=== PATIENT | male | born 1930 | race Hispanic/Latino ===

== ENCOUNTER 2018-11-20 13:02 | Inpatient (IN) | payer MEDICARE ==
[~2018-11-20] VITALS: Ht 180.3 cm; Wt 100.0 kg
[2018-11-20] MEDS ORDERED: SODIUM CHLORIDE 0.9% 1000ML 1,000 ML IV STA ×2 (13:11→13:31)
--- NOTE | 2018-11-20 13:16 | NUR ---
AT BEDSIDE FOR KRISHNAMURTHY PLACEMENT, NOTED TO HAVE EXCESSIVE BARRIER OINTMENT CREAM TO PERINEUM, JANAY CARE PROVIDED, AREA VERY RED.
[2018-11-20] MEDS ORDERED: CEFTRIAXONE SOD 1 GM/NS 50 ML 50 ML IV STA (13:31)
[2018-11-20] MEDS ORDERED: FAMOTIDINE 20 MG/2 ML VIAL IV STA (13:31)
[2018-11-20 13:42] LABS: BASOPHILS % 0.3 % (0.0-1.0); EOSINOPHILS # (AUTO) 0.1 (0.0-0.4); EOSINOPHILS % 0.8 % (0.0-6.0); HEMATOCRIT 37.3 % (38.2-49.6); HEMOGLOBIN 12.3 g/dL (14.0-18.0); LYMPHOCYTES # (AUTO) 0.7 (1.0-3.2); LYMPHOCYTES % 8.7 % (18.0-39.1); MEAN CORPUSCULAR HEMOGLOBIN 30.4 pg (28-32); MEAN CORPUSCULAR VOLUME 92.1 fL (81-99); MONOCYTES # (AUTO) 0.6 (0.2-0.8); MONOCYTES % 7.1 % (4.4-11.3); NEUTROPHILS # (AUTO) 6.3 (2.1-6.9); NEUTROPHILS % 82.3 % (38.7-80.0); PLATELET COUNT 162 x10e3/uL (140-360); RED BLOOD COUNT 4.05 x10e6/uL (4.3-5.7); RED CELL DISTRIBUTION WIDTH 11.8 % (11.7-14.4)
[2018-11-20 13:47] LABS: INR 1.2; PARTIAL THROMBOPLASTIN TIME 32.6 seconds (23.8-35.5); PROTHROMBIN TIME 15.8 seconds (11.9-14.5)
[2018-11-20] MEDS ORDERED: ONDANSETRON HCL INJ 2MG/ML 2ML 2 MG/ML VIAL IV ONE (13:51)
[2018-11-20 13:54] LABS: BILIRUBIN,URINE NEGATIVE (NEGATIVE); CLARITY,URINE SL CLOUDY (CLEAR); COLOR,URINE YELLOW (YELLOW); KETONES,URINE NEGATIVE (NEGATIVE); LEUKOCYTE ESTERASE ,URINE NEGATIVE (NEGATIVE); NITRITE,URINE NEGATIVE (NEGATIVE); PROTEIN,URINE DIPSTICK NEGATIVE (NEGATIVE); URINE UROBILINOGEN 0.2 mg/dL (0.2 - 1)
[2018-11-20 13:56] LABS: ALBUMIN 3.4 g/dL (3.5-5.0); ALBUMIN/GLOBULIN RATIO 0.9 (0.8-2.0); ANION GAP 18.2 mmol/L (8-16); CALCIUM 9.5 mg/dL (8.4-10.2); CREATININE, SERUM 4.73 mg/dL (0.72-1.25)
[2018-11-20 13:59] LABS: MAGNESIUM 2.8 MG/DL (1.3-2.1)
[2018-11-20 14:00] LABS: POTASSIUM 6.2 mmol/L (3.5-5.1)
[2018-11-20] MEDS ORDERED: MORPHINE SULFATE 2 MG/ML SYR 1ML IV ONE (14:00)
[2018-11-20] MEDS ORDERED: SODIUM BICARBONATE 8.4% INJ 50 ML SYR IV ONE (14:02)
[2018-11-20] MEDS ORDERED: ALBUTEROL SULF 0.083% NEB SOLN 3 ML NEB NEB ONE (14:02)
[2018-11-20] MEDS ORDERED: CALCIUM GLUCONATE 10% INJ 0.465 MEQ/ML VIAL IV ONE (14:02)
[2018-11-20] MEDS ORDERED: IPRATROPIUM BROMIDE 0.02% 2.5 ML NEB NEB ONE (14:02)
[2018-11-20] MEDS ORDERED: SOD POLYSTYRENE SULFONATE SUSP 15 GM/60 ML BTL PO ONE (14:02)
[2018-11-20] MEDS ORDERED: INSULIN REGULAR, HUMAN 100 UNIT/1 ML 3ML VIAL IV ONE (14:02)
[2018-11-20] MEDS ORDERED: DEXTROSE 50% SYRINGE 50 ML IV ONE (14:02)
[2018-11-20 14:06] LABS: CREATINE KINASE MB 2.7 ng/mL (0-5.0)
[2018-11-20 14:11] LABS: B-TYPE NATRIURETIC PEPTIDE2 11.5 pg/mL (0-100)
[2018-11-20 14:13] LABS: BACTERIA,URINE MODERATE /HPF; EPITHELIAL CELLS,URINE MODERATE /LPF
[2018-11-20] MEDS ORDERED: ALBUTEROL SULF 0.083% NEB SOLN 3 ML NEB NEB PRN (14:15)
[2018-11-20] MEDS ORDERED: CEFTRIAXONE SOD 1 GM/NS 50 ML 50 ML IV ONE (14:15)
[2018-11-20] MEDS ORDERED: SODIUM CHLORIDE 0.9% IV ONE (14:30)
[2018-11-20] MEDS ORDERED: CALCIUM GLUCONATE IV ONE (14:30)
--- OUTSIDE RECORDS SUMMARY | 2018-11-20 14:38 | XMS REPORT | Encounter Summary ---
Author Organization Unknown Address [address] [place] [address] Phone [phone] Care Team Providers Care Assistant Signal Maintainer Name Role Phone Dr. Viri Machuca 3 [phone] Ada Becerra 3 [phone] To Herring MD 124 [phone] Reason for Visit lab only visit Instructions 1. Long-term current use of anticoagulant 2. 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 Patient educational handouts: No information available. Plan of Care Reminders Provider Appointments None recorded. Lab INR, Plasma 08/09/2018 [facility] Laboratory Referral None recorded. Procedures None recorded. Surgeries None recorded. Imaging None recorded. Medications Name Start Date clotrimazole-betamethasone 1 %-0.05 % topical cream APPLY TO THE AFFECTED AND SURROUNDING AREAS OF SKIN BY TOPICAL ROUTE 2 TIMES PER DAY IN THE MORNING AND EVENING FOR 2 WEEKS clotrimazole/betamethasone dipropionate 1-0.05 % crea hydrocodone 10 mg-acetaminophen 325 mg tablet Take 1 tablet every 6 hours by oral route. metoprolol succinate ER 25 mg tablet,extended release 24 hr Take 1 tablet every day by oral route. sertraline 50 mg tablet TAKE 1 TABLET BY MOUTH EVERY DAY sertraline hcl 50 mg tabs simvastatin 40 mg tablet Take 1 tablet every day by oral route at bedtime. warfarin 3 mg tablet TAKE 1 TABLET BY MOUTH EVERY DAY Medications Administered None recorded. Vitals None recorded. Lab Results Date Name Specimen Result Interpretation Description Value Range Status Address PT/INR Prothrombin 56.6 [facility] ([facility]) [place]: [address] [facility] Inr 4.7 [facility] ([facility]) [place]: [address] [facility] Allergies Code Code System Name Reaction Severity Status Onset NKDA Problems Name Status Onset Date Source Pain in Lower Limb Active 01/17/2018 Mixed Anxiety and Depressive Disorder Active 04/14/2018 Long-term Current Use of Anticoagulant Active 04/14/2018 Chronic Deep Venous Thrombosis of Right Lower Extremity Active 04/14/2018 Dementia Active 08/02/2018 Diabetes Mellitus Active Hyperlipidemia Active Procedures Date Name Performed by Hemorrhoidectomy Information not available Vaccine List Vaccine Type influenza, high dose seasonal 01/17/20180.5 mL pneumococcal conjugate PCV 13 01/17/20180.5 mL Social History Smoking Status Never Smoker Past Encounters 08/09/2018 Long-term Current Use of Anticoagulant; Chronic Deep Venous Thrombosis of Right Lower Extremity Pino Kennedy MD: [address] [place] [address], Ph. 08/02/2018 Dementia; Long-term Current Use of Anticoagulant; Body Mass Index 30+ - Obesity; Pruritic Rash; Elevated Blood-pressure Reading without Diagnosis of Hypertension; Hyperlipidemia; Mixed Anxiety and Depressive Disorder; Chronic Deep Venous Thrombosis of Right Lower Extremity Viri Machuca MD: [address] [place] [address], Ph. History of Present Illness None recorded. Review of Systems None recorded. Physical Exam None recorded.
--- OUTSIDE RECORDS SUMMARY | 2018-11-20 14:38 | XMS REPORT ---
Author Author [facility] Address Unknown Phone Unavailable Care Team Providers Care Senior Branch Manager Name Role Phone Unavailable Unavailable Problems This patient has no known problems. Allergies, Adverse Reactions, Alerts This patient has no known allergies or adverse reactions. Medications This patient has no known medications. Encounters Start Date/Time End Date/Time Encounter Type Admission Type Attending [facility] Facility Care Department Encounter ID 2018-11-05 15:57:00 2018-11-03 14:43:00 Inpatient E [facility] [id number] 2018-09-25 13:51:00 2018-09-25 13:51:00 Emergency [id number]
--- OUTSIDE RECORDS SUMMARY | 2018-11-20 14:38 | XMS REPORT | Encounter Summary ---
Author Organization Unknown Address [address] [place] [address] Phone [phone] Care Team Providers Care Salad Chef Name Role Phone Dr. Viri Machuca 3 [phone] Ada Becerra 3 [phone] To Herring MD 124 [phone] Reason for Visit PT/INR Instructions 1. Long-term current use of anticoagulant PT/INR 2. Mixed anxiety and depressive disorder sertraline 50 mg tablet 3. At risk for falls social media marketing specialist referral 4. Memory impairment neurology referral - Please schedule &contact our patient. thank you. 5. Elevated blood-pressure reading without diagnosis of hypertension metoprolol succinate ER 25 mg tablet,extended release 24 hr 6. Hyperlipidemia high cholesterol: care instructions simvastatin 40 mg tablet 7. 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 Senile purpura 9. Diabetes mellitus Discussion Note: None recorded. Plan of Care Reminders Provider Appointments None recorded. Lab PT/INR 04/01/2018 [facility] ([facility]) [place] Referral Big Data Lead Referral 04/01/2018 Neurology Referral 04/01/2018 Kell Grimm MD Procedures None recorded. Surgeries None recorded. Imaging None recorded. Medications Name Start Date clotrimazole 1 %-betamethasone 0.05 % cream-zinc ox 20 % paste topical Apply twice a day by topical route. clotrimazole-betamethasone 1 %-0.05 % topical cream APPLY TO THE AFFECTED AND SURROUNDING AREAS OF SKIN BY TOPICAL ROUTE 2 TIMES PER DAY IN THE MORNING AND EVENING FOR 2 WEEKS clotrimazole/betamethasone dipropionate 1-0.05 % crea hydrocodone 10 mg-acetaminophen 325 mg tablet Take 1 tablet every 6 hours by oral route. hydrocodone/acetaminophen 10-325 mg tabs metoprolol succinate ER 25 mg tablet,extended release 24 hr Take 1 tablet every day by oral route. metoprolol succinate er 25 mg tb24 mupirocin 2 % oint mupirocin 2 % topical ointment APPLY A SMALL AMOUNT TO THE AFFECTED AREA BY TOPICAL ROUTE 3 TIMES PER DAY sertraline 50 mg tablet Take 1 tablet every day by oral route. Half a tablet per day for first two weeks, then one tablet per day. simvastatin 40 mg tablet Take 1 tablet every day by oral route at bedtime. simvastatin 40 mg tabs sulfamethoxazole 800 mg-trimethoprim 160 mg tablet Take 1 tablet every 12 hours by oral route for 10 days. warfarin 3 mg tablet Take 1 tablet every day by oral route. warfarin sodium 3 mg tabs Medications Administered None recorded. Vitals Height Weight BMI Blood Pressure 5 ft 7 in 201 lbs 31.5 kg/m2 160/60 mm[Hg] Lab Results Date Name Specimen Result Interpretation Description Value Range Status Address 04/01/2018 PT/INR Inr 1.6 [facility] ([facility]) [place]: [address] [place] [address] Prothrombin 18.8 [facility]) [place]: [address] [place] [address] Allergies Code Code System Name Reaction Severity Status Onset NKDA Problems Name Status Onset Date Source Pain in Lower Limb Active 01/17/2018 Mixed Anxiety and Depressive Disorder Active 04/14/2018 Long-term Current Use of Anticoagulant Active 04/14/2018 Chronic Deep Venous Thrombosis of Right Lower Extremity Active 04/14/2018 Diabetes Mellitus Active Hyperlipidemia Active Procedures Date Name Performed by Hemorrhoidectomy Information not available Vaccine List Vaccine Type influenza, high dose seasonal 01/17/20180.5 mL pneumococcal conjugate PCV 13 01/17/20180.5 mL Social History Smoking Status Never Smoker Past Encounters 04/01/2018 Long-term Current Use of Anticoagulant; Mixed Anxiety and Depressive Disorder; At Risk for Falls; Memory Impairment; Elevated Blood-pressure Reading without Diagnosis of Hypertension; Hyperlipidemia; Chronic Deep Venous Thrombosis of Right Lower Extremity; Senile Purpura; Diabetes Mellitus Viri Machuca MD: [address] [place] [address], Ph. History of Present Illness Anticoagulant monitoring Reported By: Patient Note:87yo male here with daughter, Lauren (Mimi) for one-month follow-up visit. Last visit was 02/12/18. Pt had a fall at home on Sunday night Feb 20. Pt's called both daughters & ambulance came about 4am on 02/21/18. Pt had no LOC, but lost his balance after drinking a 'little alcohol' per daughter. Hit his head above left eye & had bleeding from nose. Is on coumadin. Was taken to [facility] & had CT head - had evidence of old stroke and small fracture of skull in upper nasal area between eyebrows. Blood alcohol level was 1.8 per daughter. No ID or CVA. Didn't bring paperwork from hospital.<div>Has been a little 'aggressive' verbally abusive, anxious recently. Daughter wonders if depression/anxiety. Hard to sit still. Impatient. No headaches. Memory impaired, and thinking of angry thoughts from past. Has never been on medication for mood. Hx of tremor - was on medication in past yrs ago. Getting harder to take care of at home.
<div>
</div><div>Has appt with Dr To Herring, pain management, next week 04/10/18 for hydrocodone. Takes hydrocodone bid.</div><div>
</div><div>Was getting home health care for pressure wound 3x/wk for three weeks in [facility] - healed shallow ulcer. Was also getting home PT 2x/wk for 3wks from [facility] for strengthening.</div><div>In office, protime 18.8 with INR 1.6 today.</div><div>< br></div><div>Previously:</div><div><div>Followed by Dr To Herring, pain management, to continue his Hydrocodone - acetaminophen 10-325 for chronic lower leg pain due to poor circulation in R>L leg and hx of blood clots. Pt takes warfarin 3 mg daily and needs PT/INR check. Pt currently takes 2 tablets on Sunday and 2 tablets on Wednesdays of his 3mg daily warfarin. </div><div>
< /div><div><div><span style="font-size: 14px;">Pt previous PCP, Dr. Norma Becerra in [place]. </span></div><div><div>Also hx of diabetes in the past. Was on oral medication, perhaps metformin, but it was discontinued as it caused N/V and caused him to lose weight. Not on any medication now for DM.</div></div ></div></div></div> Review of Systems:ROS as noted in the HPI Review of Systems Comprehensive General Adult ROS Reported By: Patient Constitutional: Constitutional: no fever Eyes: Eyes: no vision change Cardiovascular: Cardiovascular: no chest pain Respiratory: Respiratory: no cough, no wheezing, no shortness of breath Gastrointestinal: Gastrointestinal: no abdominal pain Musculoskeletal: Musculoskeletal: muscle aches, arthralgias/joint pain; bilateral leg pain Integumentary: Skin: itching, growths/lesions Neurologic: Neurologic: no loss of consciousness, no headaches; unsteady gait Psychiatric: Psych: feeling safe in a relationship, no hallucinations, no suicidal thoughts, depression, restless sleep, alcohol abuse, anxiety Physical Exam General Adult Exam (male), Cardiology Exam Reported By: Patient Constitutional: General Appearance: healthy-appearing, appears stated age; elderly male with walker. Level of Distress: NAD. Ambulation: ambulating normally Psychiatric: Mental Status: active and alert, normal mood, normal affect Eyes: Lids and Conjunctivae: non-injected. Pupils: PERRLA. EOM: EOMI. Sclerae: non-icteric ENMT: Hearing: no hearing loss. Oropharynx: moist mucous membranes Lungs: Respiratory effort: no dyspnea. Auscultation: breath sounds normal, good air movement, CTA except as noted, no wheezing, no rales/crackles Cardiovascular: Heart Auscultation: RRR, normal S1, normal S2, no murmurs. Neck vessels: no carotid bruits. Systolic Murmur: not heard. Diastolic Murmur: not heard Abdomen: Bowel Sounds: normal. Inspection and Palpation: soft Musculoskeletal:: Extremities: no edema, cyanosis, venous stasis changes; hyperpigmentation of both LEs, decreased pulses. Bilateral onychomycosis of all toenails except 4th toe on each foot Neurologic: Gait and Station: normal gait Skin: Inspection and palpation: no rash, lesion; hyperpigmentation of LEs, cool, dry LEs with scaly skin, decreased hair
--- OUTSIDE RECORDS SUMMARY | 2018-11-20 14:39 | XMS REPORT | Encounter Summary ---
Author Organization Unknown Address [address] [place] [address] Phone [phone] Care Team Providers Care Human Resources Records Clerk Name Role Phone Dr. Viri Machuca 3 [phone] Ada Hernan 3 [phone] To Herring MD 124 [phone] Reason for Visit PT/INR Instructions 1. Long-term current use of anticoagulant PT/INR Discussion Note: None recorded. Patient educational handouts: No information available. Plan of Care Reminders Provider Appointments Est Patient 10/01/2018 10:00AM Viri Machuca MD Lab PT/INR 09/27/2018 [facility] ([facility] Referral None recorded. Procedures None recorded. Surgeries None recorded. Imaging None recorded. Medications Name Start Date clotrimazole-betamethasone 1 %-0.05 % topical cream APPLY TO THE AFFECTED AND SURROUNDING AREAS OF SKIN BY TOPICAL ROUTE 2 TIMES PER DAY IN THE MORNING AND EVENING FOR 2 WEEKS hydrocodone 10 mg-acetaminophen 325 mg tablet Take 1 tablet every 6 hours by oral route as needed. metoprolol succinate ER 25 mg tablet,extended release 24 hr Take 1 tablet every day by oral route. sertraline 50 mg tablet Take 0.5 tablets every day by oral route. simvastatin 40 mg tablet Take 1 tablet every day by oral route at bedtime. warfarin 3 mg tablet TAKE 1 TABLET BY MOUTH EVERY DAY Medications Administered None recorded. Vitals None recorded. Lab Results Date Name Specimen Result Interpretation Description Value Range Status Address 09/27/2018 PT/INR Prothrombin 12.3 [facility]: [address] [place] [address] St., [place] Inr 1.0 [facility]: [address] [place] PT/INR [facility] 2.4 [facility] [address] [place] PT/INR Prothrombin 82.2 [facility]: [address] [facility] Inr 6.9 [facility] ([facility]) [place]: [address] [facility] Allergies Code Code System Name Reaction Severity [...] conjugate PCV 13 01/17/20180.5 mL Social History Tobacco Smoking Status Never Smoker Past Encounters 09/27/2018 Long-term Current Use of Anticoagulant Viri Machuca MD: [address] [place] [address], Ph. 09/19/2018 Painless Rectal Bleeding; Long-term Current Use of Anticoagulant; Type 2 Diabetes Mellitus; Hyperlipidemia; Benign Essential Hypertension; Body Mass Index 30+ - Obesity; Major Depressive Disorder; Obesity Pino Kennedy MD: [address] [place] [address], Ph. 09/12/2018 Long-term Current Use of Anticoagulant Pino Kennedy MD: [address] [place] [address], Ph. History of Present Illness Anticoagulant monitoring Reported By: Patient Review of Systems None recorded. Physical Exam None recorded.
--- OUTSIDE RECORDS SUMMARY | 2018-11-20 14:39 | XMS REPORT | Encounter Summary ---
Author Organization Unknown Address [address] [place] [address] Phone [phone] Care Team Providers Care Appeals Referee Name Role Phone Dr. Viri Machuca 3 [phone] Ada Hernan 3 [phone] To Herring MD 124 [phone] Reason for Visit PT/INR Instructions 1. Long-term current use of anticoagulant PT/INR 2. 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 Dementia dementia: care instructions neurology referral 4. Body mass index 30+ - obesity body mass index: care instructions learning about healthy weight 5. Pruritic rash clotrimazole-betamethasone 1 %-0.05 % topical cream 6. Elevated blood-pressure reading without diagnosis of hypertension metoprolol succinate ER 25 mg tablet,extended release 24 hr 7. Hyperlipidemia simvastatin 40 mg tablet 8. Mixed anxiety and depressive disorder sertraline 50 mg tablet Discussion Note: None recorded. Plan of Care Reminders Provider Appointments Est Patient 08/14/2018 1:30PM Viri Machuca MD Lab PT/INR 08/02/2018 [facility] ([facility]) [place] Referral Neurology Referral 08/02/2018 Dali Hirsch MD Procedures None recorded. Surgeries None recorded. [...] EVERY DAY Medications Administered None recorded. Vitals Height Weight BMI Blood Pressure 5 ft 7 in 218.6 lbs 34.2 kg/m2 (1) 158/82 mm[Hg] (2) 132/60 mm[Hg] Lab Results Date Name Specimen Result Interpretation Description Value Range Status Address PT/INR Prothrombin 56.6 [facility] ([facility]) [place]: [address] [place] [address] Inr 4.7 [facility]: [address] [place] [address] Allergies Code Code System Name Reaction Severity [...] of Right Lower Extremity Pino Kennedy MD: [address] [place] [phone], Ph. 08/02/2018 Long-term Current Use of Anticoagulant; Chronic Deep Venous Thrombosis of Right Lower Extremity; Dementia; Body Mass Index 30+ - Obesity; Pruritic Rash; Elevated Blood-pressure Reading without Diagnosis of Hypertension; Hyperlipidemia; Mixed Anxiety and Depressive Disorder Viri Machuca MD: [address] [place] [address], Ph. History of Present Illness Note:88yo male here with daughter, Lauren (Mimi) for four-month follow-up visit. Last visit was 04/01/18. Pt lives with & they have a caregiver during the day. Both pt & have been unsteady on their feet & frequent falls, per daughter. Looking into moving parents into SNF to assist. Pt very forgetful, hx of dementia. Son has medical POA. Pt's is seen by neurologist, Dr Dali Hirsch for memory loss & Parkinson's. Daughter would like referral to Dr Hirsch for pt for evaluation of dementia. Pt previous PCP, Dr. Norma Becerra in [place] - historical records reviewed.< div>PT 56.6 with INR 4.7 in office today 08/02/18. Discussed with dtr. Hold coumadin on both Sunday & Sunday. Resume coumadin 3mg qd on Sunday & repeat INR in one week (nurse visit). Goal INR 2.0-3.0.</div><div>Continue with walker for safe ambulation.
<div>
</div><div>PMHx:
<div>Memory loss - gradual onset. Neuro eval requested.</div><div>Hx of depression - currently on sertraline 50mg qd.</div><div>Hx of right leg DVT - on long-term anticoagulation with coumadin. Pt takes warfarin 3 mg daily with 2 tablets (6mg) on Sundays and 2 tablets (6mg) on Wednesdays.</div><div>Hyperlipidemia - on simvastatin 40mg qhs. TC 164, LDL 95, HDL 38, TG 225 on 02/11/18.</div><div>Hx of DM. Now diet- controlled. Last hgb A1c 5.9% on 02/11/18.</div><div>Hx of diabetic neuropathy with tremor</div><div>Hx CKD3. Last Cr 1.27 with GFR 51 on 02/11/19.</div><div> Chronic right leg pain - followed by pain management, Dr To Herring for hydrocod one - acetaminophen 10-325 for chronic lower leg pain due to poor circulation in R>L leg and hx of blood clots on right. Seen by hematology, Dr Olea in past. See by cardiology, Dr Brittany Kathleen in past.</div><div>Hx of BPH - followed by Dr Condon, urology in past. Last PSA <0.1 on 02/11/18.</div><div>Hx of pressure ulcer- was getting home health care for pressure wound 3x/wk for three weeks in Feb 2018 - healed shallow ulcer. Was also getting home PT 2x/wk for 3wks from [facility] for strengthening.</div><div><div>
</div></div>< /div></div> Review of Systems:ROS as noted in the [...]
--- OUTSIDE RECORDS SUMMARY | 2018-11-20 14:39 | XMS REPORT | Encounter Summary ---
Author Organization Unknown Address [address] [place] [address] Phone [phone] Care Team Providers Care Station Engineer Main Line Name Role Phone Dr. Viri Machuca 3 [phone] Ada Valdezmo 3 [phone] To Herring MD 124 [phone] Reason for Visit skin problem/rash Instructions 1. Pruritus of skin triamcinolone acetonide 0.1 % topical cream Medrol (Alvino) 4 mg tablets in a dose pack diphenhydramine 25 mg capsule 2. Long-term current use of anticoagulant home visiting referral 3. Memory impairment 4. Diabetes mellitus Discussion Note: None recorded. Patient educational handouts: No information available. Plan of Care Reminders Provider Appointments None recorded. Lab None recorded. Referral Home Visiting Referral 08/14/2018 [facility] Procedures None recorded. Surgeries None recorded. Imaging None recorded. Medications Name Start Date clotrimazole-betamethasone 1 %-0.05 % topical cream APPLY TO THE AFFECTED AND SURROUNDING AREAS OF SKIN BY TOPICAL ROUTE 2 TIMES PER DAY IN THE MORNING AND EVENING FOR 2 WEEKS diphenhydramine 25 mg capsule Take 1 capsule every 8 hours by oral route as needed for 3 days. hydrocodone 10 mg-acetaminophen 325 mg tablet Take 1 tablet every 6 hours by oral route. Medrol (Alvino) 4 mg tablets in a dose pack Take 1 dose pk every day by oral route. metoprolol succinate ER 25 mg tablet,extended release 24 hr Take 1 tablet every day by oral route. sertraline 50 mg tablet TAKE 1 TABLET BY MOUTH EVERY DAY simvastatin 40 mg tablet Take 1 tablet every day by oral route at bedtime. triamcinolone acetonide 0.1 % topical cream APPLY A THIN LAYER TO THE AFFECTED AREA(S) BY TOPICAL ROUTE 2 TIMES PER DAY warfarin 3 mg tablet TAKE 1 TABLET BY MOUTH EVERY DAY Medications Administered None recorded. Vitals Height Weight BMI Blood Pressure 5 ft 7 in 128/54 mm[Hg] Lab Results Date Name Specimen Result Interpretation Description Value Range Status Address PT/INR Prothrombin 56.6 [facility] [place]: [address] [place] [address] Inr 4.7 [facility] [place]: [address] [place] [address] Allergies Code Code System Name Reaction Severity [...] History Smoking Status Never Smoker Past Encounters 08/14/2018 Pruritus of Skin; Long-term Current Use of Anticoagulant; Memory Impairment; Diabetes Mellitus Viri Machuca MD: [address] [place] [phone], Ph. 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 History of Present Illness Note:88yo male here with daughter, Lauren Castellano) for evaluation of rash for past three days on body. Pt was in office on Sun08/09/18 for protime - he thinks rash started on same left arm about a day or two after blood test. Daughter notes she recently changed soap in shower from green [employer] (which he has used for years) to Dial Antibacterial bar soap (white bar). Pt thinks rash developed after switching brands of soap. No new foods. Has not been outside in yard due to heat.<div>
<div>Pt was seen earlier this morning by Dr Dali Hirsch, neurology, for confusion, memory loss, forgetfulness. Was given several memory assessments in office for dementia. Pt very confused per daughter. Is looking into getting parents into SNF/memory care facility. Notes that they have caregiver during the day, but not safe at night. Mother slipped out of bed again last night & ambulance was called to get her back to bed.< /div><div>
</div><div>Had sub-therapeutic protime with INR 1.5 on 08/09/18. Goal INR 2.0-3.0. Previously on 08/02/18 had INR of 4.7. Discussed with daughter & pt - resume regular coumadin schedule: 3mg qd on M, T, , , Sun and 6mg qd on Wednesdays & Sundays. Recheck protime in 2wks.</div><div>
</div>< div>Previously:</div><div><div>Pt lives with & they have a caregiver [...] Pt previous PCP, Dr. Norma Becerra in [place] - historical records reviewed.< br></div><div><div>Continue with walker for safe ambulation.
</div><div><div>
</div><div>PMHx:
<div>Memory loss - gradual onset. 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 Pt takes warfarin 3 mg daily with 2 tablets (6mg) on Sundays and 2 tablets (6mg) on Wednesdays.</div ><div>Hyperlipidemia - on simvastatin 40mg qhs. TC 164, LDL 95, HDL 38, TG 225 on 02/11/18.</div><div>Hx of DM. Now diet-controlled. Last hgb A1c 5.9% on 02/11/18.</div><div>Hx of diabetic neuropathy with tremor</div><div>Hx CKD3. Last Cr 1.27 with GFR 51 on 02/11/19.</div><div>Chronic right leg pain - followed by pain management, Dr To Herring for hydrocodone - acetaminophen 10- 325 for chronic lower leg pain due to [...] getting home PT 2x/wk for 3wks from [facility] for strengthening.</div><div><div>
</div></div></div></div></div> </div></div> Review of Systems:ROS as noted in the HPI Review of Systems Comprehensive General Adult ROS Reported By: Patient Constitutional: Constitutional: no fever Eyes: Eyes: no vision change Cardiovascular: Cardiovascular: no chest pain Respiratory: Respiratory: no cough, no wheezing, no shortness of breath Gastrointestinal: Gastrointestinal: no abdominal pain Musculoskeletal: Musculoskeletal: muscle aches, arthralgias/joint pain; bilateral leg pain Integumentary: Skin: rash, itching; both arms, back, abdomen. Not on face or legs Neurologic: Neurologic: no loss of consciousness, no [...] Station: normal gait Skin: Inspection and palpation: rash, lesion; see photos below - erythematous rash over arms, trunk.hyperpigmentation of LEs, cool, dry LEs with scaly skin, decreased hair
--- OUTSIDE RECORDS SUMMARY | 2018-11-20 14:39 | XMS REPORT | Encounter Summary ---
Author Organization Unknown Address [address] [place] [address] Phone [phone] Care Team Providers Care Purchasing Officer Name Role Phone Dr. Viri Machuca 3 [phone] Ada Drakelermo 3 [phone] To Herring MD 124 [phone] Reason for Visit rectal bleeding; PT/INR Instructions 1. Painless rectal bleeding CBC w/ auto diff 2. Long-term current use of anticoagulant PT/INR 3. Type 2 diabetes mellitus 4. Hyperlipidemia high cholesterol: care instructions 5. Benign essential hypertension 6. Body mass index 30+ - obesity body mass index: care instructions learning about healthy weight 7. Major depressive disorder 8. Obesity Discussion Note: None recorded. Plan of Care Reminders Provider Appointments Work in Same Day 09/27/2018 12:00PM Viri Machuca MD Lab PT/INR 09/19/2018 [facility] ([facility]) [place] CBC W/ Auto Diff 09/19/2018 [facility] Laboratory Referral None recorded. Procedures [...] BMI Blood Pressure 5 ft 7 in 212 lbs 33.2 kg/m2 (1) 179/81 mm[Hg] (2) 129/69 mm[Hg] Lab Results Date Name Specimen Result Interpretation Description Value Range Status Address PT/INR Prothrombin 2.4 [facility] ([facility]) [place]: [address] [facility] [place] PT/INR Prothrombin 82.2 [facility] ([facility] [place]: [address] [facility], [place] Inr 6.9 [facility] ([facility]) [place]: [address] [facility], [place] Allergies Code Code System Name Reaction Severity [...] History Smoking Status Never Smoker Past Encounters 09/19/2018 Painless Rectal Bleeding; Long-term Current Use of Anticoagulant; Type 2 Diabetes Mellitus; Hyperlipidemia; Benign Essential Hypertension; Body Mass Index 30+ - Obesity; Major Depressive Disorder; Obesity Pino Kennedy MD: [address] [place] [address], Ph. 09/12/2018 Long-term Current Use of Anticoagulant Pino Kennedy MD: [address] [place] [address], Ph. History of Present Illness Note:Hx of DVT in R leg taking coumadin, last INR 6.9 on 09/19/18. He was supposed to stop the coumadin for just two days, but he had rectal bleeding, so he hasn't taken it since 8 days ago.<div><div>Denies abdominal pain, chest pain, sob, palpitations, weakness or lightheadedness.</div><div>Hx of dm, not on meds. Last a1c 5.9.</div></div> Review of Systems:ROS as noted in the HPI Review of Systems None recorded. Physical Exam General Adult Exam (male), Cardiology Exam Reported By: Patient Constitutional: General Appearance: appears stated age; elderly male with walker. Level of Distress: NAD. Ambulation: ambulating normally Psychiatric: Mental Status: active and alert, normal mood, normal affect Eyes: Lids and Conjunctivae: non-injected. EOM: EOMI. Sclerae: non-icteric ENMT: Hearing: no hearing loss. Oropharynx: moist mucous membranes Lungs: Respiratory effort: no dyspnea. Auscultation: breath sounds normal, good air movement, CTA except as noted, no wheezing, no rales/crackles Cardiovascular: Heart Auscultation: RRR, normal S1, normal S2, no murmurs. Neck vessels: no carotid bruits Abdomen: Bowel Sounds: normal. Inspection and Palpation: soft, non-distended, no tenderness, no guarding, no rebound tenderness Musculoskeletal:: Motor Strength and Tone: normal, normal tone. Extremities: no edema, cyanosis, venous stasis changes; hyperpigmentation of both LEs
--- OUTSIDE RECORDS SUMMARY | 2018-11-20 14:39 | XMS REPORT | Encounter Summary ---
Author Organization Unknown Address [address] [place] [address] Phone [phone] Care Team Providers Care Kapok Machine Operator Name Role Phone Dr. Viri Machuca 3 [phone] Ada Becerra 3 [phone] To Herring MD 124 [phone] Reason for Visit PT/INR Instructions 1. Long-term current use of anticoagulant PT/INR Discussion Note: None recorded. Patient educational handouts: No information available. Plan of Care Reminders Provider Appointments Nurse Visit 09/19/2018 10:00AM Nurse [place] [facility] PT/INR 09/12/2018 [facility] ([facility] [place] Referral None recorded. Procedures None recorded. Surgeries [...] by oral route. hydrocodone/acetaminophen 10-325 mg tabs Medrol (Alvino) 4 mg tablets in a dose pack Take 1 dose pk every day by oral route. methylprednisolone dose pack 4 mg tbpk metoprolol succinate ER 25 mg tablet,extended release 24 hr Take 1 tablet every day by oral route. sertraline 50 mg tablet TAKE 1 TABLET BY MOUTH EVERY DAY sertraline hcl 50 mg tabs simvastatin 40 mg tablet Take 1 tablet every day by oral route at bedtime. triamcinolone acetonide 0.1 % crea triamcinolone acetonide 0.1 % topical cream APPLY A THIN LAYER TO THE AFFECTED AREA(S) BY TOPICAL ROUTE 2 TIMES PER DAY warfarin 3 mg tablet TAKE 1 TABLET BY MOUTH EVERY DAY Medications Administered None recorded. Vitals None recorded. Lab Results Date Name Specimen Result Interpretation Description Value Range Status Address PT/INR Prothrombin 82.2 [facility] ([facility]) [place]: [address] [place] [address] Inr 6.9 [facility] ([facility]) [place]: [address] [place] [address] Allergies Code Code System Name Reaction Severity [...] History Smoking Status Never Smoker Past Encounters 09/12/2018 Long-term Current Use of Anticoagulant Pino Kennedy MD: [address] [place] [address], Ph. 08/14/2018 Pruritus of Skin; Long-term Current Use of Anticoagulant; Memory Impairment; Diabetes Mellitus Viri Machuca MD: [address] [place] [address], Ph. History of Present Illness Anticoagulant monitoring Reported By: Patient Review of Systems None recorded. Physical Exam None recorded.
[2018-11-20] MEDS: SODIUM CHLORIDE 0.9% 1000ML 1,000 ML IV SCH ×2 (14:50→22:15)
--- NOTE | 2018-11-20 14:53 | Diagnostic Imaging Report ---
CT of the abdomen and pelvis, without contrast. History: Abdominal pain. Comparison: None available. Technique: Multidetector CT scanning of the abdomen and pelvis was performed from the level of the lung bases to the inferior pubic rami after intravenous and oral administration of contrast. Coronal and sagittal multiplanar reformations were obtained. RADIATION DOSE: Total DLP: 841.40 mGy*cm Dose modulation, iterative reconstruction, and/or weight based adjustment of the mA/kV was utilized to reduce the radiation dose to as low as reasonably achievable. Findings: The lung bases demonstrate areas of subsegmental atelectasis/scarring. Atherosclerotic calcifications are noted within the coronary arteries. The liver is normal in size and attenuation on this noncontrast enhanced examination. The gallbladder is not visualized and likely surgically absent. There is no biliary ductal dilatation. The stomach, spleen, pancreas, and bilateral adrenal glands demonstrate an unremarkable noncontrast appearance. The kidneys are normal in size and location. There is no evidence for nephrolithiasis or hydronephrosis. The ureters are normal course and caliber. The urinary bladder is collapsed around a Valencia catheter. Radiation seeds are noted in the expected region of the prostate. Prominent atherosclerotic calcifications are identified within the abdominal aorta and branch vessels. There is infrarenal abdominal aortic aneurysm with maximal AP diameter of 3.4 cm. There is short segment of displacement of calcification at this level which may reflect mural thrombus or focal dissection. The IVC is normal in caliber and contains an infrarenal IVC filter in appropriate position. Please note evaluation the bowel is limited without the use of enteric contrast material. The visualized loops of small and large bowel demonstrate no evidence of obstruction or inflammation. Abundant amount of stool is noted within the distal colon, recommend correlation for constipation. There is no ascites or intracranial free air. No abnormally enlarged lymph nodes are identified within the abdomen or pelvis. There are extensive degenerative changes of the visualized spine. There is no evidence for acute fracture or destructive process. The extraperitoneal soft tissues are unremarkable. IMPRESSION: 1. No acute abdominopelvic process identified to correlate with patient's abdominal pain. 2. Aortic atherosclerosis and fusiform infrarenal abdominal aortic aneurysm with maximum AP diameter of 3.4 cm. Follow-up examination is recommended in 3 years by size criteria. Additionally, there is displacement of calcification which may reflect mural thrombus or focal dissection. Further evaluation could be performed with dedicated CTA if clinically indicated. 3. Moderate stool burden noted within the distal colon, recommend correlation for constipation. Signed by: Dr. Audi Castorena MD on 11/20/2018 2:50 PM
--- NOTE | 2018-11-20 15:00 | NUR ---
DR. KUMAR AT BEDSIDE FOR PT EVAL AT THIS TIME.
--- NOTE | 2018-11-20 15:13 | Diagnostic Imaging Report ---
EXAM: CHEST SINGLE (NOT PORTABLE) DATE: 11/20/2018 1:03 PM INDICATION: Altered mental status COMPARISON: None FINDINGS: The trachea is midline. The lungs are symmetrically expanded without evidence for large focal consolidation, pneumothorax, or significant pleural effusion. A calcified granuloma is noted projecting over the left midlung zone. The cardiomediastinal silhouette and pulmonary vasculature are within normal limits. Vascular calcifications noted within the thoracic aorta. There are degenerative changes of the visualized spine. No acute osseous abnormalities identified. IMPRESSION: No acute cardiac pulmonary process identified. Signed by: Dr. Audi Castorena MD on 11/20/2018 3:10 PM
--- NOTE | 2018-11-20 15:18 | Diagnostic Imaging Report ---
EXAM: HIP LEFT 2-3 VW (+/- PELVIS) DATE: 11/20/2018 1:43 PM INDICATION: Left hip pain COMPARISON: None FINDINGS: There is no evidence for acute fracture or dislocation. There are degenerative changes of the bilateral hips with joint space narrowing and associated subchondral sclerosis. Additionally, there are degenerative changes of the visualized lumbosacral spine and bilateral SI joints. Brachytherapy beats noted within the pelvis. The remaining visualized intrapelvic contents are unremarkable. IMPRESSION: No acute radiographic abnormality identified left hip. Signed by: Dr. Audi Castorena MD on 11/20/2018 3:13 PM
--- NOTE | 2018-11-20 17:25 | NUR ---
PT PLACED ON WAFFLE MATRESS FOR PRESSURE ULCER PREVENTION, TOLERATING WELL AT THIS TIME.
[2018-11-20] MEDS: SOD POLYSTYRENE SULFONATE SUSP 15 GM/60 ML BTL PO SCH (19:00)
[2018-11-20 20:31] LABS: ALBUMIN 3.2 g/dL (3.5-5.0); ALBUMIN/GLOBULIN RATIO 0.8 (0.8-2.0); ANION GAP 18.2 mmol/L (8-16); CALCIUM 9.1 mg/dL (8.4-10.2); CREATININE, SERUM 4.08 mg/dL (0.72-1.25); POTASSIUM 5.2 mmol/L (3.5-5.1)
[2018-11-20 20:45] VITALS: BP 128/56
[2018-11-20 20:49] LABS: CREATINE KINASE MB 2.7 ng/mL (0-5.0)
[2018-11-20 21:00] VITALS: BP 128/56
--- NOTE | 2018-11-20 21:00 | NUR ---
PATIENT RECEIVED. PATIENT IS AAOX3, RESP EVEN AND UNLABORED. TELE IN PLACE. IV FLUID INFUSING. PATIENT HAS A LARGE LOOSE BM. HELPED CHANGE PATIENT. LEFT BUTTOCK STAGE 2 PRESSURE WOUND NOTE, ALLEVYN DRESSING APPLIED. REDNESS TO SCROTUM NOTED. MULTIPLE SMALL HEALING WOUNDS TO LEFT LEG NOTED. ORIENTED TO ROOM. CALL LIGHT WITHIN REACH. ASSIST TO CALL FOR ASSISTANCE. BED LOW/LOCKED. CONTINUE TO MONITOR CLOSELY
[2018-11-20] MEDS: FAMOTIDINE 20 MG/2 ML VIAL IV SCH (22:15)
[2018-11-20] MEDS: TAMSULOSIN HCL 0.4 MG CAP PO SCH (22:15)
[2018-11-21] VITALS (8 sets, daily range): BP systolic 101–146; BP diastolic 57–62
--- NOTE | 2018-11-21 00:13 | Consultation ---
DATE OF CONSULTATION: 11/20/2018 History predominantly from daughter apparently. HISTORY OF PRESENT ILLNESS: This is an 88-year-old gentleman, who lives with his at [facility]. Has underlying history of possible dementia, recent peripheral stenting due to peripheral vascular disease, history of DVT in the remote past, history of hypertension, and possible history of CKD, presented with altered mental status and inability urinate. He was found to have significant urinary tract obstruction, had a Valencia catheter placed with a liter and a half of urine output so far. He is currently lying supine. He makes eye contact. Tries to follow some commands, very poor historian. Denies any complaints. His initial complaints of pain in the lower extremities according to daughter. Labs show white count 7.7 and hemoglobin 12.3. Has a potassium 6.2, bicarb 21, with a BUN 111, creatinine 4.7, and CK 232. ALLERGIES: NO APPARENT DRUG ALLERGIES. ER physician has given emergent treatment for hyperkalemia. Currently receiving IV normal saline. He is also on insulin, morphine p.r.n., ondansetron p.r.n., Pepcid. Ceftriaxone 1 time dose given. SOCIAL HISTORY: Lives with his in a retirement. Daughter, frequents them and takes care of them. PHYSICAL EXAMINATION: GENERAL: Awake, alert, and oriented x1, lying supine in bed. In no apparent distress. VITAL SIGNS: Blood pressure 129/64, pulse rate 62, afebrile. HEAD AND NECK: Cornea clear. Oral mucosa moist. Neck veins flat. LUNGS: Harsh vesicular breath sounds relatively clear. HEART: S1 and S2 audible. ABDOMEN: Otherwise soft and nontender. No apparent visceromegaly. EXTREMITIES: Lower extremity examination shows, no edema. IMPRESSION AND PLAN: Acute kidney injury, hyperkalemia, metabolic acidosis, now with obstructive uropathy secondary to bladder neck obstruction, most likely due to a large prostate. Now with the placement of Valencia catheter, I expect improvement in the patient's kidney function, hyperkalemia. Agree with Kayexalate and a cocktail for hyperkalemia. I will continue with IV antibiotics. I will also add Flomax and continue with IV normal saline. We will need Urology input to address the enlarged prostate, we will need surgical treatment eventually. Discussed with daughter in detail. MD OG Da Silva/ALLY /[id number]
[2018-11-21] MEDS: MORPHINE SULFATE 2 MG/ML SYR 1ML IV PRN ×2 (01:48→09:17)
[2018-11-21] MEDS: ONDANSETRON HCL INJ 2MG/ML 2ML 2 MG/ML VIAL IV PRN ×2 (01:48→09:17)
[2018-11-21 05:39] LABS: BASOPHILS % 0.2 % (0.0-1.0); EOSINOPHILS # (AUTO) 0.1 (0.0-0.4); EOSINOPHILS % 0.7 % (0.0-6.0); HEMATOCRIT 32.9 % (38.2-49.6); HEMOGLOBIN 10.8 g/dL (14.0-18.0); LYMPHOCYTES # (AUTO) 0.5 (1.0-3.2); LYMPHOCYTES % 5.5 % (18.0-39.1); MEAN CORPUSCULAR HEMOGLOBIN 30.5 pg (28-32); MEAN CORPUSCULAR HGB CONC 32.8 g/dL (31-35); MEAN CORPUSCULAR VOLUME 92.9 fL (81-99); MONOCYTES # (AUTO) 0.6 (0.2-0.8); MONOCYTES % 6.9 % (4.4-11.3); NEUTROPHILS # (AUTO) 7.1 (2.1-6.9); NEUTROPHILS % 86.2 % (38.7-80.0); PLATELET COUNT 153 x10e3/uL (140-360); RED BLOOD COUNT 3.54 x10e6/uL (4.3-5.7); RED CELL DISTRIBUTION WIDTH 11.9 % (11.7-14.4)
[2018-11-21 06:13] LABS: ALBUMIN 2.9 g/dL (3.5-5.0); ALBUMIN/GLOBULIN RATIO 0.8 (0.8-2.0); ANION GAP 15.6 mmol/L (8-16); CALCIUM 8.5 mg/dL (8.4-10.2); CREATININE, SERUM 3.75 mg/dL (0.72-1.25); MAGNESIUM 2.6 MG/DL (1.3-2.1); PHOSPHORUS 5.2 MG/DL (2.3-4.7); POTASSIUM 4.6 mmol/L (3.5-5.1)
--- NOTE | 2018-11-21 06:28 | NUR ---
H&P cc: urinary retention HPI: 88yoM, PCP??, developed urinary retention, found to have BENJAMIN. PMH: PVD s/p stent, HTn, CKD stage?, PShx:unknown Allergies; see emr FH/SH; no illicits Meds; see MAR ROS: unobtainable v/s; revd PE: anicteric ns1s2 mod bs soft nt nd Valencia in place trace leg edema skin dry n. affect confused labs/meds; revd A/P: 88yoM Hyperkalemia BENJAMIN Metabolic acidosis Hyponatremia BPH AAA 3.4cm Hyperglycemia Left hip arthralgia Mural thrombus? Plan Valencia Kayexalate; IVF; renal U/S Hba1c/lipids PT consult Needs reimaging of AAA in 3 months Heparin 5000 TID and pepcid Amadeo Lou MD, PhD.
[2018-11-21 06:39] LABS: CREATINE KINASE MB 2.3 ng/mL (0-5.0)
[2018-11-21 07:01] LABS: CHOL/HDL RATIO 4.3 (3.9-4.7)
[2018-11-21] MEDS: SODIUM CHLORIDE 0.9% 1000ML 1,000 ML IV SCH ×2 (07:20→14:56)
[2018-11-21 08:06] LABS: LYMPHOCYTES % (MANUAL) 6 % (19-48); MONOCYTES % (MANUAL) 7 % (3.4-9.0); NEUTROPHILS % (MANUAL) 87 % (40-74)
[2018-11-21 08:07] LABS: PLATELET ESTIMATE MODERATELY DECREASED; RBC MORPHOLOGY COMMENT NORMAL
[2018-11-21] MEDS: FAMOTIDINE 20 MG/2 ML VIAL IV SCH ×2 (09:02→21:15)
[2018-11-21] MEDS: HEPARIN SOD (PORCINE) 5,000 UNIT/ML VIAL SC SCH ×2 (09:05→21:15)
[2018-11-21] MEDS: SOD POLYSTYRENE SULFONATE SUSP 15 GM/60 ML BTL PO SCH ×2 (09:05→17:00)
--- NOTE | 2018-11-21 12:19 | NUR ---
WOUND CARE CONSULTATION: THIS IS AN 88 YEAR OLD MALE PATIENT ADMITTED TO [facility] FOR ACUTE RENAL FAILURE, HYPERKALEMIA, AND WEAKNESS. HEAD TO TOE SKIN ASSESSMENT PERFORMED. PATIENT HAS A SACRAL DTI MEASURING 6X6.7X0.1CM, MAROON PURPLE DISCOLORATION NOTED. PATIENT HAS A SMALL HEALING ABRASION, STABLE ESCHAR TO LEFT LOMBARDO; NO SXS OF INFECTION NOTED. PATIENT HAS BUE MULTIPLE BRUISES NOTED. PATIENT HAS AREAS OF DENUDED SKIN NOTED TO BILATERAL GROIN FOLDS, APPEAR TO BE YEAST. PATIENT IS INCONTINENT OF STOOL AND RECEIVING LACTULOSE FOR HIGH K+ LEVELS. LABS: WBC8.29 ALB2.9 HA1C6.4 [id number] BLOOD CULTURE = PENDING URINE CULTURE = PENDING MEDICATIONS: CEFTRIAXONE RECOMMENDATION: -CONTINUE ALTERNATING PRESSURE RELIEF MATTRESS. -CONTINUE BILATERAL HEEL PROTECTORS WITH PILLOW SUSPENSION. -TURN EVERY 2 HOURS AND PRN. -NURSING TO CLEAN SACRAL DTI WITH NORMAL SALINE, PAT DRY, APPLY VENELEX THEN ALLEVYN FOAM; CHANGE BID AND PRN. -NURSING TO APPLY VENELEX TO LEFT LOMBARDO ABRASION DAILY AND LEAVE OPEN TO AIR. -NURSING TO CLEAN BILATERAL GROIN FOLDS WITH SOAP AND WATER, PAT DRY, APPLY NYSTATIN POWDER MIXED WITH VENELEX TO DENUDED AREAS OF SKIN TO BILATERAL GROIN CREASES BID AND PRN. THANK YOU FOR THIS WOUND CARE CONSULT. Addendum: 11/21/18 at 1236 by Opal Yusuf RN Amended: Links added.
--- NOTE | 2018-11-21 12:56 | NUR ---
PT SLEEPING UNABLE TO DO DPA AT THIS TIME
[2018-11-21] MEDS: CEFTRIAXONE SOD 1 GM/NS 50 ML 50 ML IV SCH (14:17)
[2018-11-21] MEDS: FUROSEMIDE INJ 10 MG/ML 2 ML VIAL IV SCH (17:03)
[2018-11-21] MEDS ORDERED: LACTULOSE10 GM/15 M PO (19:32)
[2018-11-21] MEDS ORDERED: TYLENOL WITH C1 EACH PO (19:32)
[2018-11-21] MEDS ORDERED: SERTRALINE HCL50 MG PO (19:32)
[2018-11-21] MEDS ORDERED: SIMVASTATIN40 MG PO (19:32)
[2018-11-21] MEDS ORDERED: METOPROLOL SUCC25 MG PO (19:32)
[2018-11-21] MEDS: TAMSULOSIN HCL 0.4 MG CAP PO SCH (21:15)
[2018-11-21] MEDS: BALSAM PERU/CASTOR OIL 60 GM OINT...G. TP SCH (21:15)
[2018-11-21] MEDS: NYSTATIN 15 GM POWDER UD BTL TOP SCH (21:15)
[2018-11-22] VITALS (8 sets, daily range): BP systolic 106–135; BP diastolic 53–69
--- NOTE | 2018-11-22 06:30 | NUR ---
NOTIFIED DR ZARAGOZA THAT PATIENT HAS BEEN CONFUSE AND PULLED OUT HIS IV. PATIENT REFUSED TO GET IV INSERTION . AWARE. DR ZARAGOZA SAID HE WOULD CHECK ON PATIENT LATER
--- NOTE | 2018-11-22 06:55 | NUR ---
IM- progress note O/N: no events ROS: unobtainable v/s; revd PE: anicteric ns1s2 mod bs soft nt nd Valencia in place trace leg edema skin dry n. affect confused labs/meds; revd A/P: 88yoM Hyperkalemia BENJAMIN Metabolic acidosis Hyponatremia BPH AAA 3.4cm Hyperglycemia Left hip arthralgia Mural thrombus? Plan Valencia Kayexalate; IVF; renal U/S Hba1c/lipids PT consult Needs reimaging of AAA in 3 months Heparin 5000 TID and pepcid 9-20 Hba1c/LDL 6.4/65; check labs; urology eval. Some anxiety- add xanax 0.25 q12. Amadeo Lou MD, PhD.
--- NOTE | 2018-11-22 07:30 | NUR ---
Received patient this morning and alert, confused, pulling Valencia cath and some hematuria noted in Valencia bag. He also pulled out his IV line and does not have access at this time. Dr. Lou rounded and orders for IJ line, Spoke with IR and will obtain consent. Call light within reach, bed alarms in place, will monitor.
[2018-11-22] MEDS: ALPRAZOLAM 0.25 MG TAB PO SCH ×2 (08:00→17:19)
[2018-11-22 08:11] LABS: BASOPHILS % 0.3 % (0.0-1.0); EOSINOPHILS # (AUTO) 0.1 (0.0-0.4); EOSINOPHILS % 1.1 % (0.0-6.0); HEMATOCRIT 31.3 % (38.2-49.6); HEMOGLOBIN 10.3 g/dL (14.0-18.0); LYMPHOCYTES # (AUTO) 0.5 (1.0-3.2); LYMPHOCYTES % 7.2 % (18.0-39.1); MEAN CORPUSCULAR HEMOGLOBIN 30.4 pg (28-32); MEAN CORPUSCULAR HGB CONC 32.9 g/dL (31-35); MEAN CORPUSCULAR VOLUME 92.3 fL (81-99); MONOCYTES # (AUTO) 0.5 (0.2-0.8); NEUTROPHILS # (AUTO) 5.5 (2.1-6.9); NEUTROPHILS % 84.1 % (38.7-80.0); PLATELET COUNT 173 x10e3/uL (140-360); RED BLOOD COUNT 3.39 x10e6/uL (4.3-5.7); RED CELL DISTRIBUTION WIDTH 11.9 % (11.7-14.4)
[2018-11-22 08:26] LABS: ANION GAP 14.5 mmol/L (8-16); CREATININE, SERUM 2.73 mg/dL (0.72-1.25); POTASSIUM 3.5 mmol/L (3.5-5.1)
--- NOTE | 2018-11-22 08:30 | NUR ---
Nurse manager health notified patient will need a sitter.
--- NOTE | 2018-11-22 08:34 | NUR ---
Spoke with Dr. Lopez regarding consult, medicated patient with Xanax for anxiety, will monitor
[2018-11-22] MEDS: HEPARIN SOD (PORCINE) 5,000 UNIT/ML VIAL SC SCH ×2 (09:00→21:10)
[2018-11-22] MEDS: SOD POLYSTYRENE SULFONATE SUSP 15 GM/60 ML BTL PO SCH ×2 (09:00→09:03)
--- NOTE | 2018-11-22 09:42 | NUR ---
Verbal consent obtained from Lauren Loomis, patient's daughter for IJ line
[2018-11-22] MEDS ORDERED: POTASSIUM CHLORIDE 20 MEQ TAB CR PO ONE (12:30)
[2018-11-22] MEDS ORDERED: FUROSEMIDE INJ 10 MG/ML 4 ML VIAL IV ONE (12:30)
[2018-11-22] MEDS: FAMOTIDINE 20 MG/2 ML VIAL IV SCH ×2 (12:45→21:09)
[2018-11-22] MEDS: FUROSEMIDE INJ 10 MG/ML 2 ML VIAL IV SCH ×2 (12:45→17:19)
--- NOTE | 2018-11-22 13:45 | NUR ---
Patient returned from IR an triple lumen IJ to right neck area.
[2018-11-22] MEDS: CEFTRIAXONE SOD 1 GM/NS 50 ML 50 ML IV SCH (14:00)
--- NOTE | 2018-11-22 14:23 | NUR ---
Patient found in room partially pulled central line, secured, call to attending, Vicenta dickey IM now, IR consult to check for placement of central line, sitter 1:1.
[2018-11-22] MEDS ORDERED: HALOPERIDOL LACTATE 5 MG/ML VIAL IM ONE (14:30)
[2018-11-22] MEDS: QUETIAPINE FUMARATE 25 MG TAB PO SCH ×2 (14:39→21:09)
[2018-11-22] MEDS: BALSAM PERU/CASTOR OIL 60 GM OINT...G. TP SCH ×2 (15:39→21:09)
[2018-11-22] MEDS: NYSTATIN 15 GM POWDER UD BTL TOP SCH ×2 (15:39→21:09)
--- NOTE | 2018-11-22 15:39 | NUR ---
Patient had a large BM, incontinence care provided and tolerated well, rounds by Dr. Lopez and orders to not remove chun cath, will monitor.
--- NOTE | 2018-11-22 15:52 | Diagnostic Imaging Report ---
Chest, portable AP view History: Patient partially pulled out central venous catheter Comparison: Central line placement 11/22/2018 IMPRESSION: The right internal jugular central venous catheter tip has been retracted into the mid SVC but is still appropriately positioned. The catheter may be used for blood draws and effusions. The heart is within normal limits size. No focal consolidation, pleural effusion, or pneumothorax. Signed by: James Morrison MD on 11/22/2018 3:49 PM
--- NOTE | 2018-11-22 15:54 | Diagnostic Imaging Report ---
Central venous catheter insertion, 11/22/2018. History: Patient requires central venous access. Modality: Fluoroscopy and sonography. Sedation: None. It Consulting Manager: James Morrison MD. Tectonophysicist: None. Approach: Right internal jugular vein Estimated blood loss: < 5 cc. Specimen: None. Fluoroscopy Time: 0.1 min. Reference Air Kerma (Ka, r): 2.1 mGy. Technique: Informed written consent was obtained from the patient's family. Discussion of risks, benefits, and alternatives were made with the patient's family. A universal timeout was performed prior to starting the procedure. All elements maximal sterile barrier technique was utilized for this procedure, including utilization of sterile scrub solution for skin prep, a large sterile sheet to cover the areas of the patient that were not prepped, and hand hygiene, mask, head covering, and sterile gown for performing radiologist and scrub technologist. The skin was anesthetized with 2% lidocaine. Ultrasound evaluation showed a patent and compressible right internal jugular vein, which was punctured under direct real-time ultrasound guidance with a micropuncture needle. An ultrasound image was saved to PACS. A microwire and sheath were placed. A 0.035 inch wire was placed through the sheath into the right atrium. The tract was dilated. The 16 cm 7 Palestinian triple-lumen catheter was placed over the wire with its distal tip terminating in the superior right atrium. The ports were flushed and aspirated easily following placement. The catheter was sutured to the skin to secure its placement. Vital signs were monitored throughout the procedure by a nurse, and remained stable. The patient tolerated the procedure well and left the department in the same condition. Results: Spot radiograph of the chest demonstrates the new triple-lumen catheter to lie in the expected position with its tip overlying the right atrium. Impression: Successful, uncomplicated placement of a right internal jugular triple lumen catheter using sonographic and fluoroscopic guidance. The catheter is ready for immediate use. Signed by: James Morrison MD on 11/22/2018 3:51 PM
--- NOTE | 2018-11-22 16:09 | NUR ---
Patient alert and responsive, XRay for placement verification of line confirmed use of line. supervisor shipfitters notified and nurse showroom manager notified about orders for sitter 1:1 at bedside.
--- NOTE | 2018-11-22 17:59 | NUR ---
Patient responding to Haldol given IM, calm and sleepy, arousable responds to prompts, will monitor, bed alarms in place,
--- NOTE | 2018-11-22 19:32 | NUR ---
PT IS RESTING IN BED. RESPIRATION IS EVEN AND UNLABORED, NO DISTRESS NOTED. BED IN THE LOWEST POSITION, LOCKED, BED ALARM ON, AND CALL LIGHT WITHIN REACH. WILL CONTINUE TO MONITOR.
[2018-11-22] MEDS: TAMSULOSIN HCL 0.4 MG CAP PO SCH (21:09)
--- NOTE | 2018-11-22 21:45 | Consultation ---
DATE OF CONSULTATION: 11/22/2018 Urology Consultation REASON FOR CONSULTATION: Gross hematuria and urinary retention. HISTORY OF PRESENT ILLNESS: Edwardo Guardado is an 88-year-old man, who was admitted to the hospital on 11/20/2018. Valencia catheter was placed due to urinary retention. This was done two days ago, so I am unsure as to the retention volume. The patient was pulling his Valencia catheter and had some hematuria, therefore, urological consultation was sought. The patient is not a very good historian from radiographic studies, it is obvious that the patient has had history of prostate cancer and has had at least brachytherapy as management. The patient denies previous hematuria, urinary tract infections, or urolithiasis. PAST MEDICAL AND SURGICAL HISTORY: Reveals from the chart as well as discussion with the nurses: 1. Infrarenal abdominal aortic aneurysm 3.4 cm. 2. Peripheral artery disease, status post bilateral lower extremity stents. 3. Chronic renal insufficiency. 4. Hypertension. 5. Urinary tract infections. 6. Depression. 7. Hyperlipidemia. 8. Dorsalgia. 9. Failure to thrive. 10. Chronic pain. 11. Pressure ulcer. 12. Constipation. ALLERGIES: NONE KNOWN. CURRENT MEDICATIONS: Please refer the MAR. SOCIAL HISTORY: The patient denies smoking, ethanol, or drug use. He did smoke in the past. He used to work for the railroad. FAMILY HISTORY: Noncontributory to the active urological problems. REVIEW OF SYSTEMS: Discussed as above in history of present illness and past medical history, otherwise negative for all systems. PHYSICAL EXAMINATION: GENERAL: Elderly debilitated appearing man, lying in bed, in no apparent distress. VITAL SIGNS: He is currently afebrile. Vital signs are currently stable. ABDOMEN: Soft, nondistended, and nontender without costovertebral angle tenderness. Kidneys not palpable without hepatosplenomegaly. There is a blue tattoo in suprapubic region consistent with aiming for radiotherapy. GENITOURINARY: Testes are descended bilaterally. Testes and epididymides bilaterally nontender. The patient has an uncircumcised male phallus with paraphimosis that I gently reduced and decreased the foreskin edema. The meatus is normal. There is a Valencia catheter in place draining currently clear urine out. For the remaining physical examination systems, please refer to the admission history and physical on the chart. LABORATORY STUDIES: The patient's sodium is low at 135. His creatinine is 2.73, which is actually an improvement from his worse creatinine upon admission. The patient did have potassium at 6.2 upon admission with a creatinine of 4.73 and a sodium of 127 upon admission. The patient's white blood cell count 6540, hemoglobin 10.3, and platelets 173,000. Urinalysis significant for microhematuria with 6-10 rbc's and there was moderate bacteria, but urine culture was negative. CT scan of the abdomen and pelvis revealed brachytherapy seeds within the prostate, no hydronephrosis was noted. ASSESSMENT: 1. Urinary retention for 500 mL according to the ERT sheet. 2. Valencia catheter in situ. 3. Gross hematuria, most likely from trauma of the urinary tract caused by the patient. 4. Acute on chronic renal failure. 5. Anemia. 6. Hyponatremia. 7. Hyperkalemia that improved. 8. Possible urinary tract infection, but history of recurrent urinary tract infections. 9. Prostate cancer, status post at least brachytherapy. PLAN: 1. Leave the Valencia catheter in place. 2. PRN irrigations of the Valencia catheter with normal saline. 3. The patient needs ongoing urological followup. 4. Do not allow the patient to pull the catheter. 5. At some point in time, cystoscopic examination as well as additional studies may be appropriate. Thank you much for involving us in care of your patient. We will be happy to follow along with you as well as an outpatient. William Lopez MD [place]/MODL /[id number]
[2018-11-23] VITALS (8 sets, daily range): BP systolic 115–161; BP diastolic 56–79
--- NOTE | 2018-11-23 01:33 | NUR ---
PT IS MOANING LOUDLY AND RUBBING IS LEG. PAGE DR ZARAGOZA FOR PAIN ORDER. AWAITING CALL BACK. WILL CONTINUE TO MONITOR.
--- NOTE | 2018-11-23 01:42 | NUR ---
PER DR ZARAGOZA MORPHINE 4MG IV Q4H PRN. WILL CONTINUE TO MONITOR.
[2018-11-23] MEDS: MORPHINE SULFATE 2 MG/ML SYR 1ML IV PRN ×3 (02:00→22:38)
[2018-11-23 06:34] LABS: ALBUMIN 2.9 g/dL (3.5-5.0); ALBUMIN/GLOBULIN RATIO 0.8 (0.8-2.0); ANION GAP 15.4 mmol/L (8-16); CALCIUM 8.9 mg/dL (8.4-10.2); CREATININE, SERUM 2.91 mg/dL (0.72-1.25); POTASSIUM 3.4 mmol/L (3.5-5.1)
--- NOTE | 2018-11-23 07:51 | NUR ---
IM- progress note O/N: no events ROS: unobtainable v/s; revd PE: anicteric ns1s2 mod bs soft nt nd Chun in place trace leg edema skin dry n. affect confused labs/meds; revd A/P: 88yoM Hyperkalemia BENJAMIN Metabolic acidosis Hyponatremia BPH AAA 3.4cm Hyperglycemia Left hip arthralgia Mural thrombus? Plan Chun Kayexalate; IVF; renal U/S Hba1c/lipids PT consult Needs reimaging of AAA in 3 months Heparin 5000 TID and pepcid 9-20 Hba1c/LDL 6.4/65; check labs; urology eval. Some anxiety- add xanax 0.25 q12. 11/23 continue chun; continue antipsychotics; f/u labs; PT consult; SNF eval. Amadeo Lou MD, PhD.
[2018-11-23] MEDS: ALPRAZOLAM 0.25 MG TAB PO SCH ×2 (09:00→17:04)
[2018-11-23] MEDS: QUETIAPINE FUMARATE 25 MG TAB PO SCH ×2 (09:00→20:33)
[2018-11-23] MEDS: BALSAM PERU/CASTOR OIL 60 GM OINT...G. TP SCH ×2 (09:45→20:34)
[2018-11-23] MEDS: FUROSEMIDE INJ 10 MG/ML 2 ML VIAL IV SCH ×2 (09:45→17:04)
[2018-11-23] MEDS: NYSTATIN 15 GM POWDER UD BTL TOP SCH ×2 (09:45→20:34)
[2018-11-23] MEDS: FAMOTIDINE 20 MG/2 ML VIAL IV SCH ×2 (09:45→20:33)
[2018-11-23] MEDS: HEPARIN SOD (PORCINE) 5,000 UNIT/ML VIAL SC SCH ×2 (09:51→20:45)
[2018-11-23] MEDS: CEFTRIAXONE SOD 1 GM/NS 50 ML 50 ML IV SCH (14:00)
[2018-11-23] MEDS: INSULIN GLARGINE 100 UNITS/ML VIAL SQ SCH ×2 (14:15→20:45)
--- NOTE | 2018-11-23 17:30 | NUR ---
Patient alert and responsive, no resp distress, was calm today and much cooperative with care, PICC line in place, call light within reach, able to make needs known, medicated for pain and bed alarms in place, tolerated GI soft diet per orders, will monitor.
--- NOTE | 2018-11-23 19:00 | NUR ---
Received patient from day nurse, patient is alert and oriented, safety and fall precautions maintained as per hospital protocol.
[2018-11-23] MEDS: TAMSULOSIN HCL 0.4 MG CAP PO SCH (20:33)
[2018-11-24] VITALS (8 sets, daily range): BP systolic 105–139; BP diastolic 41–64
--- NOTE | 2018-11-24 06:42 | NUR ---
patient condition throughout the night was stable, patient endorsed to next shift for continuity of care.
[2018-11-24 06:46] LABS: ANION GAP 14.3 mmol/L (8-16); CALCIUM 9.3 mg/dL (8.4-10.2); CREATININE, SERUM 2.24 mg/dL (0.72-1.25); POTASSIUM 3.3 mmol/L (3.5-5.1)
--- NOTE | 2018-11-24 08:20 | NUR ---
IM- progress note O/N: no events ROS: unobtainable v/s; revd PE: anicteric ns1s2 mod bs soft nt nd Chun in place trace leg edema skin dry n. affect confused labs/meds; revd A/P: 88yoM Hyperkalemia BENJAMIN Metabolic acidosis Hyponatremia BPH AAA 3.4cm Hyperglycemia Left hip arthralgia Mural thrombus? Plan Chun Kayexalate; IVF; renal U/S Hba1c/lipids PT consult Needs reimaging of AAA in 3 months Heparin 5000 TID and pepcid 9- Hba1c/LDL 6.4/65; check labs; urology eval. Some anxiety- add xanax 0.25 q12. 11/23 continue chun; continue antipsychotics; f/u labs; PT consult; SNF eval. 11/24 replace K; renal fn improving; Amadeo Lou MD, PhD.
[2018-11-24] MEDS ORDERED: POTASSIUM CHLORIDE 20 MEQ TAB CR PO NR (08:30)
[2018-11-24] MEDS: FUROSEMIDE INJ 10 MG/ML 2 ML VIAL IV SCH ×2 (09:02→16:20)
[2018-11-24] MEDS: QUETIAPINE FUMARATE 25 MG TAB PO SCH ×2 (09:02→20:55)
[2018-11-24] MEDS: NYSTATIN 15 GM POWDER UD BTL TOP SCH ×2 (09:02→20:55)
[2018-11-24] MEDS: ALPRAZOLAM 0.25 MG TAB PO SCH ×2 (09:02→16:20)
[2018-11-24] MEDS: FAMOTIDINE 20 MG/2 ML VIAL IV SCH ×2 (09:02→20:55)
[2018-11-24] MEDS: BALSAM PERU/CASTOR OIL 60 GM OINT...G. TP SCH ×2 (09:02→21:06)
[2018-11-24] MEDS: HEPARIN SOD (PORCINE) 5,000 UNIT/ML VIAL SC SCH ×2 (09:05→20:57)
[2018-11-24] MEDS: CEFTRIAXONE SOD 1 GM/NS 50 ML 50 ML IV SCH (14:00)
--- NOTE | 2018-11-24 15:55 | NUR ---
Visit made by the Spiritual Care Department Pastoral Visitor, Arslan Soler. PV provided pastoral presence, hospitality, and supportive listening. Pastoral Visitor informed pt/family of the scope of Business Performance Advisor Services and availability. MURRAY COLEMAN Training Facilitator Spiritual Care Department O: [phone] Pager: [phone] ([phone] number calling from)
[2018-11-24] MEDS: MORPHINE SULFATE 2 MG/ML SYR 1ML IV PRN ×2 (16:44→22:42)
[2018-11-24] MEDS: TAMSULOSIN HCL 0.4 MG CAP PO SCH (20:55)
[2018-11-24] MEDS: INSULIN GLARGINE 100 UNITS/ML VIAL SQ SCH (20:56)
[2018-11-25] VITALS (8 sets, daily range): BP systolic 100–120; BP diastolic 49–59
[2018-11-25 05:40] LABS: BASOPHILS % 0.3 % (0.0-1.0); EOSINOPHILS # (AUTO) 0.2 (0.0-0.4); EOSINOPHILS % 2.6 % (0.0-6.0); HEMATOCRIT 30.4 % (38.2-49.6); HEMOGLOBIN 9.8 g/dL (14.0-18.0); LYMPHOCYTES # (AUTO) 0.6 (1.0-3.2); LYMPHOCYTES % 10.7 % (18.0-39.1); MEAN CORPUSCULAR HEMOGLOBIN 30.2 pg (28-32); MEAN CORPUSCULAR HGB CONC 32.2 g/dL (31-35); MEAN CORPUSCULAR VOLUME 93.5 fL (81-99); MONOCYTES # (AUTO) 0.5 (0.2-0.8); MONOCYTES % 8.8 % (4.4-11.3); NEUTROPHILS # (AUTO) 4.5 (2.1-6.9); NEUTROPHILS % 77.1 % (38.7-80.0); PLATELET COUNT 235 x10e3/uL (140-360); RED BLOOD COUNT 3.25 x10e6/uL (4.3-5.7); RED CELL DISTRIBUTION WIDTH 11.9 % (11.7-14.4)
[2018-11-25 06:03] LABS: ANION GAP 12.5 mmol/L (8-16); CALCIUM 9.1 mg/dL (8.4-10.2); CREATININE, SERUM 2.2 mg/dL (0.72-1.25); POTASSIUM 3.5 mmol/L (3.5-5.1)
--- NOTE | 2018-11-25 07:12 | NUR ---
Patient endorsed to next shift for continuity of care.
--- NOTE | 2018-11-25 07:29 | NUR ---
IM- progress note O/N: no events ROS: unobtainable v/s; revd PE: anicteric ns1s2 mod bs soft nt nd Chun in place trace leg edema skin dry n. affect confused labs/meds; revd A/P: 88yoM Hyperkalemia BENJAMIN Metabolic acidosis Hyponatremia BPH AAA 3.4cm Hyperglycemia Left hip arthralgia Mural thrombus? Plan Chun Kayexalate; IVF; renal U/S Hba1c/lipids PT consult Needs reimaging of AAA in 3 months Heparin 5000 TID and pepcid 11-22 Hba1c/LDL 6.4/65; check labs; urology eval. Some anxiety- add xanax 0.25 q12. 11/23 continue chun; continue antipsychotics; f/u labs; PT consult; SNF eval. 11/24 replace K; renal fn improving; 11/25 all cx negative; fever overnight; cont abx; d/c planning to SNF. Amadeo Lou MD, PhD.
[2018-11-25] MEDS: ACETAMINOPHEN 325 MG TAB PO PRN ×2 (07:35→13:09)
[2018-11-25] MEDS: BALSAM PERU/CASTOR OIL 60 GM OINT...G. TP SCH ×2 (09:00→21:55)
[2018-11-25] MEDS: NYSTATIN 15 GM POWDER UD BTL TOP SCH ×2 (09:00→21:55)
--- NOTE | 2018-11-25 09:31 | NUR ---
SPOKE WITH DAUGHTER MEGHAN SHE STATES HE IS A PT AT [facility], WISH IS TO RETURN TO FACILITY. WILL FAX CLINICALS
[2018-11-25] MEDS: FAMOTIDINE 20 MG/2 ML VIAL IV SCH ×2 (10:00→21:54)
[2018-11-25] MEDS: HEPARIN SOD (PORCINE) 5,000 UNIT/ML VIAL SC SCH ×2 (10:00→21:58)
[2018-11-25] MEDS: FUROSEMIDE INJ 10 MG/ML 2 ML VIAL IV SCH ×2 (10:00→18:00)
[2018-11-25] MEDS: ALPRAZOLAM 0.25 MG TAB PO SCH ×3 (10:00→19:23)
[2018-11-25] MEDS: QUETIAPINE FUMARATE 25 MG TAB PO SCH ×2 (10:00→21:54)
[2018-11-25] MEDS ORDERED: POTASSIUM CHLORIDE 20 MEQ TAB CR PO ONE (13:15)
--- NOTE | 2018-11-25 14:26 | NUR ---
EDUCATED ABOUT IMM, VIA PHONE SIGNED, FILED IN CHART, WITH COPY LEFT WITH FAMILY AT BEDSIDE.
--- NOTE | 2018-11-25 14:30 | NUR ---
SPOKE WITH REP FROM FACILITY NEED CLINICALS FAXED TO [phone]
[2018-11-25] MEDS: CEFTRIAXONE SOD 1 GM/NS 50 ML 50 ML IV SCH (14:48)
[2018-11-25] MEDS: TAMSULOSIN HCL 0.4 MG CAP PO SCH (21:54)
[2018-11-25] MEDS: INSULIN GLARGINE 100 UNITS/ML VIAL SQ SCH (21:58)
[2018-11-26] VITALS: BP 116/58
[2018-11-26 04:00] VITALS: BP 135/63
--- NOTE | 2018-11-26 05:33 | NUR ---
D/C summary Principal dx: Hyperkalemia BENJAMIN Metabolic acidosis Hyponatremia BPH AAA 3.4cm Hyperglycemia Left hip arthralgia Mural thrombus? Plan Chun Kayexalate; IVF; renal U/S Hba1c/lipids PT consult Needs reimaging of AAA in 3 months Heparin 5000 TID and pepcid 11-22 Hba1c/LDL 6.4/65; check labs; urology eval. Some anxiety- add xanax 0.25 q12. 11/23 continue chun; continue antipsychotics; f/u labs; PT consult; SNF eval. 11/24 replace K; renal fn improving; 11/25 all cx negative; fever overnight; cont abx; d/c planning to SNF. to SNF when approved d/c home f/u pcp 1 week and in 1 week stable d/c>35mins Amadeo Lou MD, PhD.
[2018-11-26] MEDS: ACETAMINOPHEN 325 MG TAB PO PRN (07:40)
[2018-11-26] MEDS: HEPARIN SOD (PORCINE) 5,000 UNIT/ML VIAL SC SCH (07:45)
[2018-11-26] MEDS: FAMOTIDINE 20 MG/2 ML VIAL IV SCH (07:45)
[2018-11-26] MEDS: QUETIAPINE FUMARATE 25 MG TAB PO SCH (07:45)
[2018-11-26] MEDS: ALPRAZOLAM 0.25 MG TAB PO SCH (07:45)
[2018-11-26 08:00] VITALS: BP 132/65
[2018-11-26 09:26] VITALS: BP 135/63
[2018-11-26 10:04] LABS: BASOPHILS % 0.4 % (0.0-1.0); EOSINOPHILS # (AUTO) 0.2 (0.0-0.4); EOSINOPHILS % 3.1 % (0.0-6.0); HEMATOCRIT 28.4 % (38.2-49.6); HEMOGLOBIN 9.3 g/dL (14.0-18.0); LYMPHOCYTES # (AUTO) 0.7 (1.0-3.2); LYMPHOCYTES % 9.7 % (18.0-39.1); MEAN CORPUSCULAR HEMOGLOBIN 30.6 pg (28-32); MEAN CORPUSCULAR HGB CONC 32.7 g/dL (31-35); MEAN CORPUSCULAR VOLUME 93.4 fL (81-99); MONOCYTES # (AUTO) 0.5 (0.2-0.8); MONOCYTES % 7.5 % (4.4-11.3); NEUTROPHILS # (AUTO) 5.4 (2.1-6.9); NEUTROPHILS % 78.7 % (38.7-80.0); PLATELET COUNT 248 x10e3/uL (140-360); RED BLOOD COUNT 3.04 x10e6/uL (4.3-5.7); RED CELL DISTRIBUTION WIDTH 11.9 % (11.7-14.4)
[2018-11-26 10:20] LABS: ANION GAP 10.5 mmol/L (8-16); CALCIUM 9.2 mg/dL (8.4-10.2); CREATININE, SERUM 2.11 mg/dL (0.72-1.25); POTASSIUM 3.5 mmol/L (3.5-5.1)
--- NOTE | 2018-11-26 11:12 | NUR ---
[facility] DISCHARGE INFORMATION PATIENT HAS BEEN ACCEPTED TO: NAME: LAUR[facility] [id number] ACCEPTING LAND DEGRADATION ANALYST: MEGHAN LINDSEY MD:JOYCELYN ROOM:[address]A NURSE CALL REPORT TO: [phone] IMM SIGNED AND OBTAINED (if applicable): YES THE FOLLOWING DOCUMENTS MUST ACCOMPANY PATIENT FOR TRANSFER: COPIED CHART: CLINICALS
[2018-11-26] MEDS: FUROSEMIDE INJ 10 MG/ML 2 ML VIAL IV SCH (11:40)
[2018-11-26 12:00] VITALS: BP 114/58
--- NOTE | 2018-11-26 12:54 | NUR ---
Notified Dr. Lou that patient has room ready at [facility]. OK to transfer patient with central line and chun per Dr. Lou
[2018-11-26] MEDS: CEFTRIAXONE SOD 1 GM/NS 50 ML 50 ML IV SCH (13:00)
--- NOTE | 2018-11-26 13:15 | NUR ---
Dr. Ansari is here making rounds. He said Ok to transfer patient with adiel
--- NOTE | 2018-11-26 13:30 | NUR ---
Spoke to patient's daughter Mimi, notified her that patient has been accepted and is ready to transfer to [facility]. She was notified of f/u appointments as outpatient. Referrals will be placed in patient chart to transfer
[2018-11-26] MEDS: BALSAM PERU/CASTOR OIL 60 GM OINT...G. TP SCH (14:20)
[2018-11-26] MEDS: NYSTATIN 15 GM POWDER UD BTL TOP SCH (14:20)
--- NOTE | 2018-11-26 15:19 | NUR ---
Patient left the floor via EMS [facility]
== END 2018-11-26 15:35 | DRG 683 ==
LOC: ER 13:02 → ERHOLD 14:05 → MED/SURG2 20:16
PROVIDERS: ADMIT Internal Medicine; ATTEND Internal Medicine
PROC: 02HV33Z Insertion of Infusion Device into Superior Vena Cava, Percutaneous Approach (ICD-10-PCS; principal; 2018-11-22)
PROC: B5181ZA Fluoroscopy of Superior Vena Cava using Low Osmolar Contrast, Guidance (ICD-10-PCS; 2018-11-22)
DX: N17.9 Acute kidney failure, unspecified (principal); E87.2 Acidosis; E87.1 Hypo-osmolality and hyponatremia; N13.8 Other obstructive and reflux uropathy; N39.0 Urinary tract infection, site not specified; E87.5 Hyperkalemia; E86.0 Dehydration; R33.9 Retention of urine, unspecified; E78.5 Hyperlipidemia, unspecified; N40.1 Benign prostatic hyperplasia with lower urinary tract symptoms; R31.0 Gross hematuria; N18.9 Chronic kidney disease, unspecified; C61 Malignant neoplasm of prostate; I51.3 Intracardiac thrombosis, not elsewhere classified; M25.552 Pain in left hip; R73.9 Hyperglycemia, unspecified; I71.4 Abdominal aortic aneurysm, without rupture; F41.9 Anxiety disorder, unspecified; Z95.820 Peripheral vascular angioplasty status with implants and grafts; Z87.891 Personal history of nicotine dependence; L89.150 Pressure ulcer of sacral region, unstageable
CPT/HCPCS: 36415; 36556; 51700; 71045; 74176; 74470; 76937; 77001; 80048; 80053; 80061; 81001; 82550; 82553; 82948; 83036; 83605; 83690; 83735; 83880; 84100; 84484; 85025; 85610; 85730; 87040; 87086; 93005; 94640; 97139; 99285; C1751; C1769; J0610; J0696; J1630; J1644; J1815; J1817; J1940; J2270; J2405; J7030; J7799